=== PATIENT | male | born 1960 | race Hispanic/Latino ===

== ENCOUNTER 2017-12-11 21:39 | Emergency (ER) | payer MEDICARE, OTHER ==
[2017-12-11 21:51] VITALS: TEMP 98; O2SAT 93
[2017-12-11] MEDS ORDERED: Albuterol-Ipratrop 3 mg / 0.5 (3 ml) UD INH STA ×3 (22:08→23:11)
[2017-12-11] MEDS ORDERED: Dexamethasone 4 mg/1 ml IM STA (22:08)
[2017-12-11] MEDS ORDERED: Albuterol 0.083% Inhal Sol (2.5 mg/3 mL) UD INH STA (22:09)
[2017-12-11] MEDS ORDERED: Albuterol-Ipratrop 3 mg / 0.5 (3 ml) UD ONE ×2 (22:14→23:54)
--- NOTE | 2017-12-11 22:30 | ED PDOC ---
HPI: SOB/CHF/COPD Time Seen by Provider: 12/11/17 21:55 Chief Complaint (Nursing): Shortness Of Breath Chief Complaint (Provider): Shortness of breath History Per: Patient History/Exam Limitations: no limitations Onset/Duration Of Symptoms: Hrs (13:00 today) Current Symptoms Are (Timing): Still Present Associated Symptoms: denies: Chest Pain, Other (Nausea, vomit, diarrhea, abdominal pain) Recently: Seen In ED Additional Complaint(s): Kieran Castellanos is a 57 year old male, with a past medical history of chronic bronchitis and COPD, who presents to the emergency department complaining of shortness of breath onset since 13:00 today. Patient was recently seen in the ED on 11/19/17 but never filled his prescriptions due to financial issues. He denies any new symptoms and states it's consistent of typical flares of COPD. He has no rescue inhalers at home which prompted his visit. 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 He denies any chest pain, nausea, vomit, diarrhea, abdominal pain, recent travel or prolonged immobility. No further medical complaints. PMD: None provided. Past Medical History Reviewed: Historical Data, Nursing Documentation, Vital Signs Vital Signs: Last Vital Signs Temp 98.0 F 12/11/17 21:46 Pulse 91 H 12/12/17 03:26 Resp 17 12/11/17 23:56 BP 104/65 12/11/17 23:56 Pulse Ox 93 L 12/12/17 03:26 - Medical History PMH: Arthritis, Asthma, Back Problems, Bronchitis, COPD, Depression Denies: Diabetes, Hepatitis, HIV, HTN, Chronic Kidney Disease, Seizures, Sexually Transmitted Disease - Surgical History Other surgeries: b/l hip replacement. Plate in left arm. - Family History Family History: States: Unknown Family Hx, Hypertension - Social History Current smoker - smoking cessation education provided: Yes (half a pack/week) Alcohol: Social Drugs: Denies - Home Medications Home Medications: Ambulatory Orders Medication Instructions Recorded Albuterol Sulfate [Proair Hfa] 2 puff IH Q4H PRN #1 inh 06/27/17 Albuterol/Ipratropium [Duoneb 3 3 ml INH RQ4 #100 neb 06/27/17 mg/0.5 mg (3 ml) UD] Fluticasone/Salmeterol 250/50 1 puff IH Q12H #1 puff 06/27/17 [Advair Diskus 250/50] Methylprednisolone [Medrol Dose 4 mg PO DAILY #21 mg 06/27/17 Pack (21 tabs)] Promethazine DM [Phenergan DM 10 ml PO Q6H #250 ml 06/27/17 Syrup] oxyCODONE/Acetaminophen [Percocet 1 ea PO Q6 #20 tab 06/27/17 5/325 mg Tab] Albuterol HFA [Ventolin HFA 90 2 puff IH Q4H PRN #1 inh 08/17/17 mcg/actuation (8 g)] Prednisone 50 mg PO DAILY #4 tablet 08/17/17 Albuterol HFA [Ventolin HFA 90 1 - 2 puff IH Q4H PRN #1 bottle 11/19/17 mcg/actuation (8 g)] Azithromycin [Zithromax] 250 mg PO DAILY #6 tab 11/19/17 predniSONE [Prednisone] 40 mg PO DAILY #8 tab 11/19/17 Albuterol HFA [Ventolin HFA 90 1 puff IH Q4 #1 inhaler 12/12/17 mcg/actuation (8 g)] - Allergies Allergies/Adverse Reactions: Allergies Allergy/AdvReac Type Severity Reaction Status Date / Time No Known Allergies Allergy Verified 12/11/17 21:46 Review of Systems Cardiovascular: Negative for: Chest Pain Respiratory: Positive for: Shortness of Breath Gastrointestinal: Negative for: Nausea, Vomiting, Abdominal Pain, Diarrhea Physical Exam - Reviewed Nursing Documentation Reviewed: Yes Vital Signs Reviewed: Yes - Physical Exam Comments: GENERAL APPEARANCE: Patient is awake, alert, oriented x 3, in no acute distress. Comfortable in ED stretcher SKIN: Warm, dry; (-) cyanosis. EYES: (-) conjunctival pallor. ENMT: Mucous membranes moist. Airway patent: (-) stridor. Pharynx: (-) swelling, (-) erythema. Uvula midline. NECK: Supple, FROM (-) tenderness, (-) stiffness, (-) lymphadenopathy. CHEST AND RESPIRATORY: (+) diffuse bilateral expiratory & inspiratory wheezing ; (-) rales, (+) scattered rhonchi, (-) rub; breath sounds equal bilaterally. Speaking in full sentences. Respirations even and unlabored. No retractions, nasal flaring, or accessory muscle use. HEART AND CARDIOVASCULAR: (-) irregularity; (-) murmur, (-) gallop. ABDOMEN AND GI: Soft; (-) tenderness. (-) Distention (-) guarding EXTREMITIES: (-) deformity, (-) edema. NEURO AND PSYCH: Mental status as above; (-) focal findings. - ECG ECG Rhythm: Positive for: Sinus Rhythm Interpretation Of ECG: No ST elevations, normal axis. Rate: 91 O2 Sat by Pulse Oximetry: 93 (RA) Pulse Ox Interpretation: Normal (within range for COPD) Medical Decision Making Medical Decision Making: Initial Impression: shortness of breath secondary to COPD Initial Plan: --EKG --Chest two views (PA/LAT) --Albuterol 0.083% Inhal Natalie 3 ml INH --Duoneb 3 ml INH x3 --Decadron Inj 10 mg IM --Peak flow pre/post Tx --Reevaluation 2355 CXR reviewed, radiology report follows EXAM: XR Chest, 2 Views EXAM DATE/TIME: 12/11/2017 10:10 PM CLINICAL HISTORY: 57 years old, male; Signs and symptoms; Shortness of breath; Additional info: SOB TECHNIQUE: Frontal and lateral views of the chest. COMPARISON: CR - CHEST TWO VIEWS (PA/LAT) 2017-08-17 14:23 FINDINGS: The mediastinal cardiac silouette is normal in size. The lungs are clear. No effusions are identified. The osseous structures are normal. IMPRESSION: No acute findings. Thank you for allowing us to participate in the care of your patient. Dictated and Authenticated by: Daphnie Cordero MD [id number] On re-evaluation, patient reports improvement of symptoms, denies any chest pain or SOB at present. No respiratory distress noted. On exam, patient remains AAOx3, in no acute distress. Lungs with improved breath sounds and resolution of wheezing, cardiac RRR, abdomen soft, non-tender, repeat neuro exam shows no focal findings. VSS. Repeat pulse ox: 98% room air. Lab results reviewed, Diagnostic results d/w the patient in great detail. Diagnosis of SOB, COPD exacerbation d/w the patient. Based on history, exam and diagnostic results, plan will be for outpatient follow up. Of note patient requesting that we supply him with medication upon discharge- patient advised this was not permitted and grew agitated with ED staff. Patient proceeded to destroy hospital property and threw hospital supplies and paperwork in exam room. Patient instructed to follow-up with pmd / referral provided / the clinic in 1- 2 days without fail. Advised to take medication as prescribed. Return to the emergency room at any time for any new or worsening symptoms. Patient states he fully agrees with and understands discharge instructions. States that he agrees with the plan and disposition. Verbalized and repeated discharge instructions and plan. I have given the patient opportunity to ask any additional questions. Scribe Attestation: Documented by Miller Gardner, acting as a scribe for Agnes Freeman PA-C Provider Scribe Attestation: All medical record entries made by the Scribe were at my direction and personally dictated by me. I have reviewed the chart and agree that the record accurately reflects my personal performance of the history, physical exam, medical decision making, and the department course for this patient. I have also personally directed, reviewed, and agree with the discharge instructions and disposition. Disposition - Clinical Impression Clinical Impression: COPD (chronic obstructive pulmonary disease), Tobacco abuse, SOB (shortness of breath) - Patient ED Disposition Is Patient to be Admitted: No Counseled Patient/Family Regarding: Studies Performed, Diagnosis, Need For Followup, Rx Given, Smoking Cessation - Disposition [facility]] Disposition: Routine/Home Disposition Time: 00:11 Condition: STABLE Prescriptions: Albuterol HFA [Ventolin HFA 90 mcg/actuation (8 g)] 1 puff IH Q4 #1 inhaler Instructions: Chronic Obstructive Pulmonary Disease (COPD), Including Emphysema , Exacerbation of COPD, Shortness of Breath (Dyspnea) Forms: [employer] (Yakut) Print Language: KYRGYZ - POA Present On Arrival: None
[2017-12-11] MEDS ORDERED: Albuterol 0.083% Inhal Sol (2.5 mg/3 mL) UD ONE (22:34)
--- NOTE | 2017-12-11 23:53 | RAD ---
EXAM: XR Chest, 2 Views EXAM DATE/TIME: 12/11/2017 10:10 PM CLINICAL HISTORY: 57 years old, male; Signs and symptoms; Shortness of breath; Additional info: SOB TECHNIQUE: Frontal and lateral views of the chest. COMPARISON: CR - CHEST TWO VIEWS (PA/LAT) 2017-08-17 14:23 FINDINGS: The mediastinal cardiac silouette is normal in size. The lungs are clear. No effusions are identified. The osseous structures are normal. IMPRESSION: No acute findings.
[2017-12-11 23:57] VITALS: BP 104/65; RESP 17
[2017-12-11 23:58] VITALS: PULSE 91
--- NOTE | 2017-12-12 20:28 | CARD ---
APPROVED REPORT EKG Measurement Heart [id number] <Conclusion> Normal sinus rhythm Possible Left atrial enlargement Borderline ECG
== END 2017-12-12 00:45 | disposition home or self-care (01) ==
LOC: H.ER 21:39
DX: J44.1 Chronic obstructive pulmonary disease with (acute) exacerbation (principal); F17.210 Nicotine dependence, cigarettes, uncomplicated; F32.9 Major depressive disorder, single episode, unspecified
CPT/HCPCS: 71046; 93005; 94640; 96372; 99283; J1100